=== PATIENT | male | born 1940 | race Caucasian/White ===

== ENCOUNTER 2017-08-05 08:10 | Day surgery (SDC) | payer MEDICARE, BC ==
[~2017-08-05] VITALS: Ht 172.7 cm; Wt 86.2 kg
[2017-08-05] MEDS ORDERED: TRAM50 (09:23)
[2017-08-05] MEDS ORDERED: GABA300 (09:24)
[2017-08-05] MEDS ORDERED: IBUP400 (09:24)
[2017-08-05] MEDS ORDERED: TAMS.4ER (09:24)
== END 2017-08-05 11:51 | disposition home or self-care (01) ==
LOC: ORSCSDS 08:10
PROVIDERS: Podiatrist Foot & Ankle Surgery
PROC: 0SRM0JZ Replacement of Right Metatarsal-Phalangeal Joint with Synthetic Substitute, Open Approach (ICD-10-PCS; principal; 2017-08-05 10:00)
PROC: 0QSQ04Z Reposition Right Toe Phalanx with Internal Fixation Device, Open Approach (ICD-10-PCS; principal; 2017-08-05 10:00)
DX: M20.21 Hallux rigidus, right foot (principal); M20.11 Hallux valgus (acquired), right foot; Z79.899 Other long term (current) drug therapy
CPT/HCPCS: C1776; J0690; J2250; J7120

== ENCOUNTER 2017-11-11 14:19 | Day surgery (SDC) | payer MEDICARE, BC ==
[~2017-11-11] VITALS: Ht 162.6 cm; Wt 83.5 kg
[~2017-11-11 14:19] MED LIST: GABA300; IBUP400; TAMS.4ER; TRAM50
[2017-11-11] MEDS ORDERED: METCAR500 PO (14:33)
== END 2017-11-11 16:20 | disposition home or self-care (01) ==
LOC: ORSCSDS 14:19
PROVIDERS: Orthopaedic Surgery
PROC: 3E0R33Z Introduction of Anti-inflammatory into Spinal Canal, Percutaneous Approach (ICD-10-PCS; principal; 2017-11-11 15:00)
DX: M51.16 Intervertebral disc disorders with radiculopathy, lumbar region (principal); M48.062 Spinal stenosis, lumbar region with neurogenic claudication; M47.816 Spondylosis without myelopathy or radiculopathy, lumbar region; E78.5 Hyperlipidemia, unspecified; Z79.899 Other long term (current) drug therapy
CPT/HCPCS: J1040

== ENCOUNTER → 2021-08-20 | Outpatient (CLI) | payer MEDICARE, BC ==
[~2021-08-20] MED LIST changes: +METCAR500 PO
[2021-08-25 09:15] LABS: HSV-1 DNA Positive (Negative); HSV-2 DNA Negative (Negative)
== END | disposition home or self-care (01) ==
LOC: LAB SHORT 16:17
PROVIDERS: Physician Assistant
DX: L08.9 Local infection of the skin and subcutaneous tissue, unspecified (principal)
CPT/HCPCS: 87070; 87205; 87529

== ENCOUNTER → 2022-11-13 | Outpatient (CLI) | payer MEDICARE, BC ==
[2022-11-13 18:25] LABS: Free Thyroxine 0.97 ng/dL (0.70-1.60)
[2022-11-13 18:28] LABS: Triiodothyronine, Free 2.11 pg/mL (2.18-3.98)
== END | disposition home or self-care (01) ==
LOC: LAB SHORT 16:06 → LAB 16:06
PROVIDERS: Family Medicine
DX: R94.6 Abnormal results of thyroid function studies (principal); Z79.899 Other long term (current) drug therapy
CPT/HCPCS: 82306; 84439; 84481

== ENCOUNTER 2024-02-02 08:14 | Day surgery (SDC) | payer MEDICARE, BC ==
[2024-02-02] VITALS (15 sets, daily range): BP systolic 98–141; BP diastolic 58–105
[~2024-02-02] VITALS: Ht 154.9 cm; Wt 69.4 kg
[~2024-02-02 08:14] MED LIST changes: +ALBU90OI INH; -GABA300; +GABA300 PO; -METCAR500 PO; +NAPR220 PO; +Robaxin750 MG PO; +TAMS.4ER PO; +TOLT4 PO; -TRAM50; +TRAM50 PO
[2024-02-02] MEDS ORDERED: Acetaminophen 500 MG Tab PO SCH ×2 (08:25→16:00)
[2024-02-02] MEDS ORDERED: Vancomycin HCL 1,000 MG in NS 250 ML IV SCH (08:25)
[2024-02-02] MEDS ORDERED: OxyCODONE HCL 10 MG TABCR PO SCH (08:25)
[2024-02-02] MEDS ORDERED: Lactated Ringer's 1,000 ML IV SCH ×2 (08:25→10:35)
[2024-02-02] MEDS ORDERED: Ropivacaine 0.5% HCl/Pf 123.125 MG,EPINEPHrine HCL 0.25 MG,Ketorolac Tromethamine 15 MG... INFIL SCH (08:25)
[2024-02-02] MEDS ORDERED: Chlorhexidine Mouth Care 15 ML UDC MT SCH (08:25)
[2024-02-02] MEDS ORDERED: Tranexamic Acid 100 ML IV SCH (08:25)
[2024-02-02] MEDS ORDERED: CeFAZolin Sodium 2,000 MG in NS 100 ML IV SCH ×2 (08:25→18:00)
[2024-02-02] MEDS ORDERED: propofoL 80 ML IV ONE (09:13)
[2024-02-02] MEDS ORDERED: ePHEDrine Sulfate 50 MG/ML 1ML Injection ONE (09:14)
[2024-02-02] MEDS ORDERED: HYDROmorphone HCl/Pf 1MG SYR IV PRN (10:30)
[2024-02-02] MEDS ORDERED: OxyCODONE HCL 5 MG TAB PO PRN ×2 (10:30)
[2024-02-02] MEDS ORDERED: Promethazine HCl 25 MG Tab PO PRN (10:30)
[2024-02-02] MEDS ORDERED: Ondansetron HCl 2 MG / ML 2ML Vial IV PRN (10:30)
[2024-02-02] MEDS ORDERED: DiphenhydrAMINE HCL 25 MG Cap PO PRN (10:30)
[2024-02-02] MEDS ORDERED: propofoL 100 ML IV ONE (10:34)
[2024-02-02] MEDS ORDERED: Magnesium Hydroxide Conc 10 ML UDC PO PRN (10:35)
[2024-02-02] MEDS ORDERED: Bisacodyl 10 MG Supp PR PRN (10:35)
[2024-02-02] MEDS ORDERED: Metoclopramide HCl 5MG / ML 2ML Vial IV PRN (10:35)
[2024-02-02] MEDS ORDERED: Vancomycin HCl 1000 MG ADDvantage ONE (11:17)
[2024-02-02] MEDS ORDERED: Ketorolac Tromethamine 30mg Vial ONE (11:25)
[2024-02-02] MEDS ORDERED: Phenylephrine HCl 100 MCG/ML-NS 10MLSYR (1MG/10ML) ONE (11:30)
[2024-02-02] MEDS ORDERED: Ketorolac Tromethamine 15mg Vial IV SCH (12:00)
[2024-02-02] MEDS ORDERED: propofoL 20 ML IV ONE (12:54)
[2024-02-02] MEDS ORDERED: Albuterol HFA200 ACT/6.7 GM INH INH PRN (14:55)
--- NOTE | 2024-02-02 18:06 | NUR ---
POST OP: REPORT RECEIVED FROM DRESSER TENDER. PT TO UNIT AT 1440, A/O, VSS. SURGICAL SITE WNL. ICE PACK ON. PT UNABLE TO WIGGLE TOES YET, PEDAL PULSE +2, CAP REFILL WNL. DENIES PAIN. PT ORIENTED TO ROOM AND INSTRUCTED TO CALL STAFF IF NEED OOB. CALL LIGHT IN REACH.
[2024-02-02] MEDS ORDERED: Vancomycin HCL 1,000 MG in NS 250 ML IV ONE (21:00)
[2024-02-02] MEDS ORDERED: Docusate Sodium 100 MG Cap PO SCH (21:00)
[2024-02-03 00:20] VITALS: BP 128/69
--- NOTE | 2024-02-03 04:04 | NUR ---
SHIFT SUMMARY SLAVA WAS ALERT AND FULLY ORIENTED ON ASSESSMENT. PT DESCRIBES HAVING HAD A BAD NIGHT D/T BLADDER DISCOMFORT, SURGICAL SITE PAIN, AND NAUSEA. PT UNABLE TO VOID STILL, STRAIGHT CATHED TWICE THIS SHIFT UP TO NOW FOR TOTAL 1150ML OUTPUT. PT C/O OF SENSATION OF URGE EVEN AFTER HAVING BLADDER DRAINED. PT BANDAGE C/D/I. PT ABLE TO STAND W/ ASSISTANCE, PULSES INTACT TO ALL EXTREMETIES. PT HESISTANT TO TAKE MEDICATIONS, EDUCATION PROVIDED. PT DID NOT SLEEP. PT RESTING IN RECLINER.
[2024-02-03 04:55] VITALS: BP 125/73
[2024-02-03 05:33] LABS: BASOPHILS ABSOLUTE AUTO 0.03 K/mm3 (0.00-0.23); BASOPHILS PERCENT AUTO 0 % (0-2); EOSINOPHILS ABSOLUTE AUTO 0.12 K/mm3 (0.00-0.68); EOSINOPHILS PERCENT AUTO 2 % (0-6); Hematocrit 36.5 % (37.0-53.0); Hemoglobin 12.5 g/dL (13.5-17.5); IMMATURE GRAN ABSOLUTE AUTO 0.02 K/mm3 (0.00-0.10); IMMATURE GRAN PERCENT AUTO 0 % (0-1); LYMPHOCYTES ABSOLUTE AUTO 0.89 K/mm3 (0.84-5.20); LYMPHOCYTES PERCENT AUTO 12 % (21-46); MONOCYTES ABSOLUTE AUTO 0.51 K/mm3 (0.16-1.47); MONOCYTES PERCENT AUTO 7 % (4-13); Mean Corpuscular HGB Conc 34.2 g/dL (31.5-36.5); Mean Corpuscular Volume 91 fL (80-100); Mean Platelet Volume 9.7 fL (9.1-12.4); NEUTROPHILS ABSOLUTE AUTO 5.93 K/mm3 (1.96-9.15); NEUTROPHILS PERCENT AUTO 79 % (41-73); Platelet Count 98 K/mm3 (150-400); RDW Coefficient Variation 12.9 % (11.7-14.2); RDW Standard Deviation 42.6 fL (35.1-46.3); Red Blood Cell Count 4.03 M/mm3 (4.30-5.90)
[2024-02-03 06:03] LABS: Bun/Creatinine Ratio 15.5 (12.0-20.0); Calcium, Blood 8.3 mg/dL (8.5-10.1); Creatinine, Blood 0.77 mg/dL (0.60-1.20); Magnesium, Blood 1.6 mg/dL (1.6-2.4); Potassium, Blood 3.9 mmol/L (3.5-5.5)
[2024-02-03 07:28] VITALS: BP 131/90
[2024-02-03] MEDS ORDERED: Trospium Chloride 20 MG Tab PO SCH (08:15)
[2024-02-03] MEDS ORDERED: Tamsulosin HCl 0.4 MG Cap PO SCH (09:00)
[2024-02-03] MEDS ORDERED: Trimethoprim/Sulfamethoxazole DS Tab PO SCH (09:00)
[2024-02-03] MEDS ORDERED: Rivaroxaban 10 MG Tab PO SCH (09:00)
[2024-02-03] MEDS ORDERED: OXYC5 PO (09:13)
[2024-02-03] MEDS ORDERED: SULTRIDS PO (09:14)
[2024-02-03] MEDS ORDERED: XARELTO10 M3 PO (09:14)
--- NOTE | 2024-02-03 13:50 | NUR ---
DISCHARGE PT HAS CLEARED THERAPY; MOVING SLOWLY. PAIN WELL CONTROLLED. EATING & DRINKING WELL. UNFORTUNATLY, UNABLE TO VOID SPONTANEOUSLY, HOSPITALIST CONSULT OBTAINED. MACK PLACED & APPOINTMENT w/ UROLOGY MADE. EDUCATED ON MACK, DEMONSTRATED EMPTYING & CARE OF MACK. DRSG SUPPLIES & POLAR PACK SENT w/ PT. ESCORTED OUT VIA W/C.
== END 2024-02-03 13:50 | disposition home or self-care (01) ==
LOC: ORSCMMR 08:14 → ORD 11:00 → ORSCMMR 11:00 → ORD 11:30 → SURS 14:33 → ORSCMMR 02-03 13:50
PROVIDERS: Orthopaedic Surgery
PROC: 0SRC0J9 Replacement of Right Knee Joint with Synthetic Substitute, Cemented, Open Approach (ICD-10-PCS; principal; 2024-02-02 11:00)
DX: M17.11 Unilateral primary osteoarthritis, right knee (principal); N40.0 Benign prostatic hyperplasia without lower urinary tract symptoms; Z79.899 Other long term (current) drug therapy
CPT/HCPCS: 36415; 51701; 73560-RT; 80048; 83735; 85025; 94760; 97110; 97116; 97162; 97530; A9270; C1713; C1776; J0171; J0690; J0735; J1885; J2371; J2405; J2704; J2795; J3370; J7050; J7120

== ENCOUNTER 2024-02-18 06:33 | Emergency (ER) | payer MEDICARE, BC ==
[~2024-02-18] VITALS: Ht 152.4 cm; Wt 65.8 kg
[~2024-02-18 06:33] MED LIST changes: +OXYC5 PO; +SULTRIDS PO; +XARELTO10 M3 PO
[2024-02-18] MEDS ORDERED: Lidocaine 2% Jelly Uro-Jet UR ONE (07:45)
[2024-02-18 08:13] LABS: Source, Urine Foley catheter
[2024-02-18 08:21] LABS: Bilirubin, Urine Neg (Neg); Blood, Urine Neg (Neg); Glucose Qualitative, Urine Neg (Neg); Ketones, Urine 1+ (Neg); Leukocyte Esterase, Urine Neg (Neg); Nitrite, Urine Neg (Neg); Protein, Urine Neg (Neg); Specific Gravity, Urine 1.015 (1.003-1.022); Urobilinogen, Urine NORM (Normal)
[2024-02-18 08:22] LABS: Appearance, Urine Clear (Clear); Color, Urine Yellow (P-Yellow)
[2024-02-18] MEDS ORDERED: FentaNYL Citrate 50 MCG/ML 2 ML Injection IV ONE ×2 (10:25→11:55)
[2024-02-18] MEDS ORDERED: LORazepam 2 MG/ML 1ML Injection IV ONE (10:25)
[2024-02-18] MEDS ORDERED: Milk 150ML/Molasses 150ML (300ML Total) PR ONE (10:25)
[2024-02-18 11:27] VITALS: BP 118/61
[2024-02-18] MEDS ORDERED: BISA5EC PO (12:37)
[2024-02-18] MEDS ORDERED: MAGCIT300 PO (12:37)
== END 2024-02-18 13:09 | disposition home or self-care (01) ==
LOC: ER 06:33
PROVIDERS: Emergency Medicine
DX: R33.9 Retention of urine, unspecified (principal); K59.00 Constipation, unspecified; Z88.8 Allergy status to other drugs, medicaments and biological substances; Z88.6 Allergy status to analgesic agent; Z79.899 Other long term (current) drug therapy
CPT/HCPCS: 51702; 51798; 74018; 81003; 96374-59; 96375-59; 96376-59; 99284-25; J2060; J3010

== ENCOUNTER → 2025-01-02 | Outpatient (CLI) | payer MEDICARE, BC ==
[~2025-01-02] MED LIST changes: +BISA5EC PO; +HYDROCODONE-AC1 EA11 PO; +MAGCIT300 PO
[2025-01-02 19:29] LABS: Anion Gap 6.0 mmol/L (3-11); Blood Urea Nitrogen 20.0 mg/dL (8-24); CO2, Blood 30.0 mmol/L (21-32); Calcium, Blood 9.1 mg/dL (8.5-10.1); Chloride, Blood 106.0 mmol/L (98-108); Creatinine, Blood 1.06 mg/dL (0.60-1.20); Glucose, Blood 97.0 mg/dL (70-99); Potassium, Blood 4.1 mmol/L (3.5-5.5); Sodium, Blood 138.0 mmol/L (136-145)
== END ==
LOC: LAB 17:34 → LAB SHORT 17:34
PROVIDERS: Student in an Organized Health Care Education/Training Program
DX: M80.00XD Age-related osteoporosis with current pathological fracture, unspecified site, subsequent encounter for fracture with routine healing (principal)
CPT/HCPCS: 80048; 82306

== ENCOUNTER 2025-02-13 12:10 | Day surgery (SDC) | payer MEDICARE, BC ==
[~2025-02-13] VITALS: Ht 154.9 cm; Wt 70.0 kg
[2025-02-13] VITALS (13 sets, daily range): BP systolic 111–134; BP diastolic 55–85
[2025-02-13] MEDS ORDERED: CeFAZolin Sodium 2,000 MG in NS 100 ML IV SCH ×2 (13:00→23:00)
[2025-02-13] MEDS ORDERED: Tranexamic Acid 100 ML IV SCH (13:00)
[2025-02-13] MEDS ORDERED: Ropivacaine 0.5% HCl/Pf 123.125 MG,EPINEPHrine HCL 0.25 MG,Ketorolac Tromethamine 15 MG... INFIL SCH (13:00)
[2025-02-13] MEDS ORDERED: Chlorhexidine Mouth Care 15 ML UDC MT SCH (13:00)
[2025-02-13] MEDS ORDERED: Ketorolac Tromethamine 30mg Vial ONE (14:36)
[2025-02-13] MEDS ORDERED: Rocuronium Bromide 10 MG/ML 5ML Injection IV ONE (14:36)
[2025-02-13] MEDS ORDERED: Ondansetron HCl 2 MG / ML 2ML Vial ONE (14:36)
[2025-02-13] MEDS ORDERED: Dexamethasone Sod Phos 10 MG/ML 1ML VIAL ONE (14:36)
[2025-02-13] MEDS ORDERED: FentaNYL Citrate 50 MCG/ML 2 ML Injection ONE (14:36)
[2025-02-13] MEDS ORDERED: Phenylephrine HCl 100 MCG/ML-NS 10MLSYR (1MG/10ML) ONE (14:55)
[2025-02-13] MEDS ORDERED: Metoclopramide HCl 5MG / ML 2ML Vial IV PRN (15:00)
[2025-02-13] MEDS ORDERED: Ondansetron HCl 2 MG / ML 2ML Vial IV PRN ×2 (15:15)
[2025-02-13] MEDS ORDERED: HYDROmorphone HCl/Pf 1MG SYR IV PRN ×2 (15:15)
[2025-02-13] MEDS ORDERED: FentaNYL Citrate 50 MCG/ML 2 ML Injection IV PRN (15:15)
[2025-02-13] MEDS ORDERED: Magnesium Hydroxide Conc 10 ML UDC PO PRN (15:15)
[2025-02-13] MEDS ORDERED: Albuterol 2.5 MG/3 ML VIAL INH PRN (15:35)
[2025-02-13] MEDS ORDERED: Sugammadex Sodium 200 MG/2ML SDV (100 MG/ML) ONE (15:46)
[2025-02-13] MEDS ORDERED: Bupivacaine HCl 0.25% 30 ML Injection ONE (15:46)
--- NOTE | 2025-02-13 16:22 | NUR ---
02/13/25 1622 Linda Flanagan LEFT ADUCTOR BLOCK COMPLETED BY AT END OF CASE, PRIOR TO TRANSFER TO PACU.
[2025-02-13] MEDS ORDERED: GUAI600T33 PO (17:29)
[2025-02-13] MEDS ORDERED: Flonase 0.05% N16 GM (17:29)
[2025-02-13] MEDS ORDERED: TOLTERODINE TART4 MG PO (17:30)
[2025-02-13] MEDS ORDERED: ZYRTEC10 M2 PO (17:31)
[2025-02-13] MEDS ORDERED: Ketorolac Tromethamine 15mg Vial IV SCH (18:00)
[2025-02-13] MEDS ORDERED: Miconazole Nitrate 2% 85 GM PWD TOP SCH (21:00)
[2025-02-14 00:18] VITALS: BP 121/76
[2025-02-14 04:35] VITALS: BP 122/66
--- NOTE | 2025-02-14 05:18 | NUR ---
NOC SUMMARY- PT PAIN MANAGED WELL. PT HAS BEEN DRINKING PLENTY OF PO FLUIDS AND VOIDING WELL VIA PUREWICK. PT REPOSITIONED AND MEPILEX APPLIED TO COCCYX. PT CAPRI WRAP REMAINS C/D/I. NO NEW ISSUES NOTED. CALL LIGHT IN REACH.
[2025-02-14 07:12] LABS: BASOPHILS ABSOLUTE AUTO 0.01 K/mm3 (0.00-0.23); BASOPHILS PERCENT AUTO 0 % (0-2); EOSINOPHILS ABSOLUTE AUTO 0.00 K/mm3 (0.00-0.68); EOSINOPHILS PERCENT AUTO 0 % (0-6); Hematocrit 36.8 % (37.0-53.0); Hemoglobin 12.6 g/dL (13.5-17.5); IMMATURE GRAN ABSOLUTE AUTO 0.02 K/mm3 (0.00-0.10); IMMATURE GRAN PERCENT AUTO 0 % (0-1); LYMPHOCYTES ABSOLUTE AUTO 0.79 K/mm3 (0.84-5.20); LYMPHOCYTES PERCENT AUTO 10 % (21-46); MONOCYTES ABSOLUTE AUTO 0.22 K/mm3 (0.16-1.47); MONOCYTES PERCENT AUTO 3 % (4-13); Mean Corpuscular HGB Conc 34.2 g/dL (31.5-36.5); Mean Corpuscular Volume 91 fL (80-100); NEUTROPHILS ABSOLUTE AUTO 6.81 K/mm3 (1.96-9.15); NEUTROPHILS PERCENT AUTO 87 % (41-73); NRBC ABSOLUTE 0.00 K/mm3 (0.00-0.02); NRBC Auto 0.0 /100 WBC (0.0-0.2); Platelet Count 138 K/mm3 (150-400); RDW Coefficient Variation 12.7 % (11.7-14.2); RDW Standard Deviation 42.2 fL (35.1-46.3)
[2025-02-14 07:24] LABS: Anion Gap 5.0 mmol/L (3-11); Blood Urea Nitrogen 17.0 mg/dL (8-24); CO2, Blood 28.0 mmol/L (21-32); Calcium, Blood 8.3 mg/dL (8.5-10.1); Chloride, Blood 107.0 mmol/L (98-108); Creatinine, Blood 1.01 mg/dL (0.60-1.20); Glucose, Blood 140.0 mg/dL (70-99); Magnesium, Blood 2.1 mg/dL (1.6-2.4); Potassium, Blood 4.3 mmol/L (3.5-5.5); Sodium, Blood 136.0 mmol/L (136-145)
[2025-02-14 07:28] VITALS: BP 107/61
[2025-02-14] MEDS ORDERED: Trimethoprim/Sulfamethoxazole DS Tab PO SCH (09:00)
[2025-02-14 14:53] VITALS: BP 114/66
--- NOTE | 2025-02-14 16:48 | NUR ---
SHIFT SUMMARY PATIENT IS POD1 R KNEE REVISION. DRESSING CHANGED BY DR. SHEPPARD WITH DAILY DRESSING CHANGE ORDER IN PLACE. PATIENT UP TO THE CHAIR WITH 2 ASSIST, WORKS WITH PT AND OT. PAIN MANAGED WELL. SPOUSE IN ROOM T/O SHIFT TO ASSIST. PATIENT IS A FEEDER AT BASELINE AND IS WHEEL CHAIR BOUND. SLING TO LEFT ARM D/T PREVIOUS FX. NWB TO THAT ARM. ABLE TO MAKE NEEDS KNOWN. VSS. CALL LIGHT IN REACH.
[2025-02-14] MEDS ORDERED: Enoxaparin 40 MG/0.4 ML SYR SC SCH (17:00)
[2025-02-14 19:10] VITALS: BP 102/57
[2025-02-15 06:09] VITALS: BP 119/86
[2025-02-15] MEDS ORDERED: Dextran/Hypromellose/Glycerin 15 DROP/ML BTL BOTHEYES PRN (06:25)
--- NOTE | 2025-02-15 06:47 | NUR ---
SHIFT SUMMARY AT START OF SHIFT, PT LYING IN BED READING. PT IS PLEASANT AND COOPERATIVE WITH CARE. PT MEDICATED PER EMAR FOR BREAKTHROUGH 7/10 PAIN IN RIGHT ANKLE AND KNEE AT 2049. AT REASSESSMENT, PT STATES HE HAS A 4/10 PAIN LEVEL. NOW SITTING IN BED READING MORE. STATED HE DOESN T GO TO SLEEP UNTIL LATE. UPON 99 ROUNDING, PT SLEEPING WELL. PT REQUESTED EYE DROPS. ARTIFICIAL TEARS ORDERED BY DOCTOR ORO.
[2025-02-15 07:07] VITALS: BP 124/55
[2025-02-15 16:13] VITALS: BP 127/68
--- NOTE | 2025-02-15 17:23 | NUR ---
SHIFT SUMMARY POD2 R KNEE HARDWARE REMOVAL. AOX3-4. ABLE TO MAKE NEEDS KNOWN.R KNEE DRESSING CHANGED BY DR. SHEPPARD, SHOULDER WITH SLING. PATIENT IS UP WITH 2 PIVOT TRANSFER. VOIDING USING PURE WICK, NEEDS ASSISTANCE WITH FEEDING. BOWEL CARE STARTED, REPORTS PASSING FLATUS, NO BM. MEDICATED FOR PAIN T/O SHIFT. PLAN FOR SNF PLACEMENT.
[2025-02-15 19:14] VITALS: BP 131/77
[2025-02-16 04:08] VITALS: BP 126/68
--- NOTE | 2025-02-16 06:51 | NUR ---
SHIFT SUMMARY PT HAS RESTED OFF AND ON T/O THE NIGHT. PT UP IN RECLINER AT THE START OF SHIFT, ASSISTED BACK TO BED WITH 2PA. PT IS QUITE WEAK, REQUIRING MAX ASSIST FOR TRANSFERS. PAIN IN KNEE, CONTROLLED WITH TORADOL. PT REFUSES TYLENOL. PT REPORTS SOME NAUSEA AT THE START OF THE SHIFT BUT DECLINES ANTIEMETICS, NO VOMITTING. PT IRRITABLE AND ANXIOUS AT TIMES. VITALS ARE STABLE. SURGICAL DRESSING INTACT AND WNL. BED IN LOWEST POSITION, CALL LIGHT WITHIN REACH.
[2025-02-16 07:10] VITALS: BP 127/69
[2025-02-16 07:59] VITALS: BP 135/94
[2025-02-16 11:05] VITALS: BP 121/70
--- NOTE | 2025-02-16 12:08 | NUR ---
PT'S REQUESTING TO SEE THIS RN AT ABOUT 1100. AT BEDSIDE PT IS A/O, SITTING UP IN RECLINER. PT REPORTS THAT HE IS HAVING "SHIVERS INSIDE". PT HAS BASELINE TREMORS IN HANDS/ARMS NO VISABLE SHIVERS. PT WOULD LIKE A TEMP CHECK. TEMP IN WNL WELL ALL VS.. SEE CHARTING. PT IS CONCERNED ABOUT PT NO ABLE TO DRINK WATER WITHOUT FEELING NAUSEATED. SHE SAYS THIS HAS BEEN GOING ON SINCE LAST NIGHT. PT WOULD ALSO LIKE TO TALK WITH DR. STEVENS ABOUT THESE CONCERNS. DR. STEVENS NOTIFIED AND IN ROOM AT ABOUT 1145. SEE NEW CONSULT FOR HOSPITALIST, DR BHAT NOTIFIED.
--- NOTE | 2025-02-16 14:43 | NUR ---
THIS RN CALLED TO ROOM AT ABOUT 1400, PT VERY CONCERNED AND ANXIOUS THAT PT IS DECLINING. DENIS, RN ALSO IN ROOM. DENIS OBTAINED VS, NO CHANGE SINCE PREVIOUS. PT IS A/O, SITTING UP IN BED. MYSELF AND DENIS ASSESSED PT. PT CONTINUES TO REPORT NO APPETITE, "SHIVERING FEELING" IN BODY. PT DENIES CP, DENIES ACUTE PAIN. DENIES ACUTE ANXIETY. PT REPORTS A FEELING "LIKE IM ABOUT TO ". DR. DAY NOTIFIED OF THE ABOVE AT 1410.
--- NOTE | 2025-02-16 16:03 | NUR ---
PT GIVEN BEDBATH AT THIS TIME AND LUNGS ASCULTATED, FINE CRACKLES HEARD AT BASES WHICH IS A CHANGE FROM THIS MORNING. PT ALSO FEELING WARMER TO THE TOUCH DURING BEDBATH. AFIBRILE, SP02 93% ON RA. PT DENIES SOB, BUT CONTINUES TO SAY HE "FEELS LIKE HES GOING TO ". DR. DAY NOTIFIED OF THE CRACKLES AT BASES, SEE ORDERS FOR LAB DRAW.
[2025-02-16 16:39] LABS: Hematocrit 40.1 % (37.0-53.0); Hemoglobin 13.8 g/dL (13.5-17.5); Mean Corpuscular HGB Conc 34.4 g/dL (31.5-36.5); Mean Corpuscular Volume 91 fL (80-100); NRBC ABSOLUTE 0.00 K/mm3 (0.00-0.02); NRBC Auto 0.0 /100 WBC (0.0-0.2); Platelet Count 145 K/mm3 (150-400); RDW Coefficient Variation 12.8 % (11.7-14.2); RDW Standard Deviation 42.7 fL (35.1-46.3)
[2025-02-16 16:58] LABS: Anion Gap 9.0 mmol/L (3-11); Blood Urea Nitrogen 16.0 mg/dL (8-24); CO2, Blood 25.0 mmol/L (21-32); Calcium, Blood 8.1 mg/dL (8.5-10.1); Chloride, Blood 98.0 mmol/L (98-108); Creatinine, Blood 1.05 mg/dL (0.60-1.20); Glucose, Blood 103.0 mg/dL (70-99); Potassium, Blood 4.5 mmol/L (3.5-5.5); Sodium, Blood 127.0 mmol/L (136-145)
[2025-02-16 18:07] LABS: Source, Urine Clean Catch
[2025-02-16 18:15] LABS: Bilirubin, Urine Neg (Neg); Color, Urine Yellow (P-Yellow); Glucose Qualitative, Urine Neg (Neg); Ketones, Urine 3+ (Neg); Leukocyte Esterase, Urine Neg (Neg); Protein, Urine Neg (Neg); Specific Gravity, Urine 1.005 (1.003-1.022); Urobilinogen, Urine NORM (Normal)
[2025-02-16] MEDS ORDERED: NS 1,000 ML IV SCH ×2 (18:40→19:10)
[2025-02-16] MEDS ORDERED: Polyethylene Glycol 3350 17 gm PO SCH (19:00)
[2025-02-16 19:37] VITALS: BP 137/69
[2025-02-17 02:54] VITALS: BP 135/76
--- NOTE | 2025-02-17 04:56 | NUR ---
RETENTION PT HAF URINARY RETENTION DESPITE VOIDING LARGE AMOUNTS OF URINE. 800 MLS DRAINED FROM PUREWICK AT MIDNIGHT. PT WAS REPORTING PAIN IN HIS BLADDDER. BLADDER SCAN REVEALED OVER [address] FERNANDEZ CALLED AND NOTIFIED OF RETENTION, MACK CATHETER ORDERED. CATHETER PLACED AND DRAINING CLEAR YELLOW URINE.
[2025-02-17 06:00] LABS: Anion Gap 9.0 mmol/L (3-11); Blood Urea Nitrogen 13.0 mg/dL (8-24); CO2, Blood 25.0 mmol/L (21-32); Calcium, Blood 7.9 mg/dL (8.5-10.1); Chloride, Blood 99.0 mmol/L (98-108); Creatinine, Blood 0.92 mg/dL (0.60-1.20); Glucose, Blood 75.0 mg/dL (70-99); Potassium, Blood 4.0 mmol/L (3.5-5.5); Sodium, Blood 129.0 mmol/L (136-145)
[2025-02-17 07:23] VITALS: BP 137/71
--- NOTE | 2025-02-17 07:23 | NUR ---
SHIFT SUMMARY PT HAS RESTED OFF AND ON T/O THE NIGHT. PT WAS HYDRATED WITH IV FLUIDS OVERNIGHT PER ORDERS AND IS TAKING IN PO INTAKE. LACTIC ACID IMPROVED WITH REPEAT DRAW. VITALS ARE STABLE. BOWEL CARE STARTED THIS SHIFT, AND PT HAD A LARGE FORMED BM. SOME URINARY RETENTION DESPITE VOIDING LARGE AMOUNTS. BLADDER SCAN REVEALED OVER 700 MLS IN BLADDER, IN ADDITION PT COMPLAINED OF PAIN IN HIS BLADDER. MACK PLACED PER ORDERS. PT WAS ABLE TO REST, APPEARED SLEEPING, EYES CLOSED CHEST RISE AND FALL AFTER CATHETER WAS PLACED, WHICH PT REPORTS RELIEVED HIS BLADDER PAIN. SURGICAL SITE WNL. BED IN LOWEST POSITION, CALL LIGHT WITHIN REACH.
[2025-02-17] MEDS ORDERED: Polyethylene Glycol 3350 17 gm PO SCH (09:00)
[2025-02-17] MEDS ORDERED: NS 1,000 ML IV SCH (10:45)
--- NOTE | 2025-02-17 10:46 | NUR ---
DR BHAT IN TO SEE PT.
--- NOTE | 2025-02-17 12:48 | NUR ---
PT APPEARS CONFUSED STATED NEEDED TO VOID. EDUCATED AND ATTEMPTED TO REORIENT PT TO FACT THAT HAS CATHETER DRAINING BLADDER.
[2025-02-17 14:16] VITALS: BP 128/68
--- NOTE | 2025-02-17 17:34 | NUR ---
SUMMARY NO ACUTE CHANGES T/O SHIFT. PT SAT UP IN RECLINER THIS AM AND IS IN RECLINER NOW. WORKED WITH PHYS THERAPY THIS AFTERNOON. REPOSITIONED IN BED T/O DAY. PT HAD SMALL SMEAR BM. TRIED USING BEDPAN THIS AFTERNOON BUT HAD NO FURTHER BM. PT STIFF AND CONTRACTED. DIFFICULT TO TRANSFER, MAX 2 PERSON ASSIST TO STAND AND PIVOT. HAS DIFFICULTY HOLDING WATER CUP AND NEEDS ASSISTANCE TO EAT. SPOUSE HAS ASSISTED W/MEALS THIS SHIFT. PT'S DRESSING CHANGED PER DR STEVENS'S NOTE/DIRECTION. MEPILEX PLACED TO COCCYX AFTER PT ATTEMPTED TO USE BEDPAN. HAD BRIEF EPISODE MIDDAY WHERE HE APPEARED CONFUSED WHILE SPOUSE WAS OUT OF ROOM. HAD TO REORIENT PT TO FACT HAD CATHETER AND THAT IT WAS DRAINING BLADDER. OTHERWISE, HAS BEEN A&OX4. MACK CATH LARGE AMOUNT OFLIGHT YELLOW URINE TO GRAVITY. PT PLEASANT AND COOPERATIVE.
[2025-02-17 19:28] VITALS: BP 133/73
--- NOTE | 2025-02-17 22:00 | NUR ---
PT REFUSED BACTRIM DOSE TONIGHT. PT AND THIS RN EDUCATED PT ON IMPORTANCE OF FINISHING COURSE OF ANTIBIOTICS. PT CONTINUES TO REFUSE. CHARGE NURSE NOTIFIED AND SHE DID NOTIFY PROVIDER. NO NEW ORDERS FOR ABX AT THIS TIME. PT ALSO REQUESTED ULTRAM HOME DOSE PER CONVERSATION WITH DAYTIME HOSPITALIST. PROVIDER NOTIFIED AND ORDERS OBTAINED.
[2025-02-18 05:55] VITALS: BP 134/82
--- NOTE | 2025-02-18 06:22 | NUR ---
SHIFT SUMMARY NO ACUTE EVENTS OVERNIGHT. PT DID INITIALLY REFUSE BACTRIM BUT DECIDED TO TAKE DOSE LATER IN SHIFT. HARNESS MAKER VERIFIED WITH PHARMACY THAT LATE ADMINISTRATION WOULD BE ACCEPTABLE WITH MORNING DOSE TIMING. PT REPOSITIONED DURING SHIFT. PT MACK DRAINING YELLOW URINE TO BAG. PT LEFT ARM REMAINS IN SLING AND AT BEDSIDE ASSISTS PT WITH REPOSITIONING SLING WHEN NEEDED.
[2025-02-18 07:27] VITALS: BP 129/62
[2025-02-18 10:28] LABS: Anion Gap 10.0 mmol/L (3-11); Blood Urea Nitrogen 13.0 mg/dL (8-24); CO2, Blood 23.0 mmol/L (21-32); Calcium, Blood 7.8 mg/dL (8.5-10.1); Chloride, Blood 105.0 mmol/L (98-108); Creatinine, Blood 0.91 mg/dL (0.60-1.20); Glucose, Blood 95.0 mg/dL (70-99); Potassium, Blood 3.4 mmol/L (3.5-5.5); Sodium, Blood 135.0 mmol/L (136-145)
[2025-02-18] MEDS ORDERED: Levodopa/Carbidopa 100 / 25 MG Tab PO SCH (11:42)
[2025-02-18 14:17] VITALS: BP 125/65
--- NOTE | 2025-02-18 18:16 | NUR ---
SHIFT SUMMARY A/OX3, AT BEDSIDE T/O SHIFT. PLAN IS TO D/C TO SNF TOMORROW. DENIES PAIN OR SOB. MACK CATH PATENT AND DRAINING TO GRAVITY. VSS, NO ACUTE CHANGES AT THIS TIME.
[2025-02-18 20:29] VITALS: BP 127/65
--- NOTE | 2025-02-19 03:12 | NUR ---
RN CALLED TO ROOM BY PT AND SPOUSE. PER REPORT, PT BUE TREMORS HAVE INCREASED UPON WAKING. PT AND SPOUSE QUESTION IF SINEMET WAS GIVEN X2 OR IF ONE OF THE DAY SHIFT DOSES WAS MISSED. RN VERIFIED THAT BOTH DOSES WERE GIVEN DURING DAY SHIFT. MEDICATION EDUCATION DONE WITH PT AND SPOUSE AND RN WELCOMED THEM TO CALL BACK IF ANYTHING CHANGES OR TREMORS INCREASE. PT AND SPOUSE VERBALIZE UNDERSTANDING.
[2025-02-19 03:45] VITALS: BP 123/66
--- NOTE | 2025-02-19 06:46 | NUR ---
SHIFT SUMMARY NO ACUTE EVENTS OVERNIGHT. SEE NOTE REGARDING SINEMET EDUCATION. PT REPOSITIONED THROUGHOUT SHIFT. PT AT BEDSIDE AND BOTH ARE ANTICIPATING DC TO [facility]. PT MACK IN PLACE WITH DRAINAGE BAG IN PLACE.
[2025-02-19 07:46] VITALS: BP 134/83
--- NOTE | 2025-02-19 14:46 | NUR ---
PT [facility] AT 1400. REPORT GIVEN TO [facility] RN. AT [facility] BEDSIDE DURING DISCHARGE AWARE OF THE PLAN OF CARE. PT HAS BEEN PLEASANT AND COOPERATIVE WITH CARES. TOLERATING DIET. DRESSING ON RIGHT KNEE REMAINED INTACT FOR [facility] SHIFT, MACK DRAINING VIA GRAVITY. VITALS HAS BEEN STABLE NO OTHER ISSUES ENCOUNTERED FOR THE SHIFT ALL BELONGINGS SENT WITH THE PT, TRANSPORTATION PICKED UP PT AT 1400.
== END 2025-02-19 14:09 ==
LOC: ORSCMMR 12:10 → UNDOADMIN 12:10 → SURS 12:10 → EDSTATUS 14:00 → SURS 16:50 → ORSCMMR 02-19 14:09
PROVIDERS: Internal Medicine; Orthopaedic Surgery
PROC: 0XJ Anatomical Regions, Upper Extremities, Inspection (ICD-10-PCS; 2025-02-13)
PROC: 0YQF0ZZ Repair Right Knee Region, Open Approach (ICD-10-PCS; 2025-02-13)
PROC: 0SPC0JC Removal of Synthetic Substitute from Right Knee Joint, Patellar Surface, Open Approach (ICD-10-PCS; principal; 2025-02-13 14:00)
DX: T84.032A Mechanical loosening of internal right knee prosthetic joint, initial encounter (principal); S52.302 Unspecified fracture of shaft of left radius; Y79.2 Prosthetic and other implants, materials and accessory orthopedic devices associated with adverse incidents; W18.30XD Fall on same level, unspecified, subsequent encounter; M24.542 Contracture, left hand; M17.11 Unilateral primary osteoarthritis, right knee; M67.863 Other specified disorders of tendon, right knee; G20.A1 Parkinson's disease without dyskinesia, without mention of fluctuations; N40.0 Benign prostatic hyperplasia without lower urinary tract symptoms; J45.909 Unspecified asthma, uncomplicated; Z79.1 Long term (current) use of non-steroidal anti-inflammatories (NSAID); Z79.899 Other long term (current) drug therapy
CPT/HCPCS: 36415; 71045; 73560-RT; 80048; 81003; 83605; 83735; 83880; 84145; 85025; 85027; 94760; 97110; 97162; 97166; 97530; A9270; J0690; J1100; J1650; J1885; J2371; J2405; J2704; J2765; J3010; J3373; J7030; J7050; J7120

== ENCOUNTER 2025-06-06 14:28 | Emergency (ER) | payer MEDICARE, BC ==
[~2025-06-06] VITALS: Ht 177.8 cm; Wt 56.2 kg
[~2025-06-06 14:28] MED LIST changes: +Flonase 0.05% N16 GM; +GUAI600T33 PO; +TOLTERODINE TART4 MG PO; +ZYRTEC10 M2 PO
[2025-06-06 15:21] LABS: Source, Urine Foley catheter
[2025-06-06 15:26] LABS: Bilirubin, Urine Neg (Neg); Color, Urine Yellow (P-Yellow); Glucose Qualitative, Urine Neg (Neg); Ketones, Urine Neg (Neg); Leukocyte Esterase, Urine Neg (Neg); Protein, Urine 1+ (Neg); Specific Gravity, Urine 1.010 (1.003-1.022); Urobilinogen, Urine NORM (Normal)
[2025-06-06 17:26] VITALS: BP 110/80
== END 2025-06-06 17:31 | disposition home or self-care (01) ==
LOC: ER 14:28
PROVIDERS: Student in an Organized Health Care Education/Training Program
DX: R33.9 Retention of urine, unspecified (principal); G20.C Parkinsonism, unspecified; Z88.8 Allergy status to other drugs, medicaments and biological substances; Z79.899 Other long term (current) drug therapy; Z79.2 Long term (current) use of antibiotics
CPT/HCPCS: 51702; 51798; 99283-25